=== PATIENT | male | born 1980 | race Hispanic/Latino ===

== ENCOUNTER 2024-07-14 13:09 | Emergency (ER) | payer BC ==
[2024-07-14] MEDS ORDERED: NA CHLORIDE 0.9% 2,000 ML ONE (13:50)
[2024-07-14 14:20] LABS: Absolute Eosinophils 0.1 K/uL (0-0.5); Absolute Lymphocytes (CBC) 1.2 K/uL (0.7-4.9); Absolute Monocytes 0.8 K/uL (0.1-1.3); Absolute Neutrophil 5.8 K/uL (1.8-8.0); Basophils % 0.5 % (0-1.3); Eosinophils % 1.1 % (0-4.4); Hematocrit 41.7 % (39.6-49.0); Hemoglobin 13.9 g/dL (13.6-17.9); Lymphocytes % 15.2 % (15.3-44.8); MCH 28.9 pg (27.0-35.0); MCHC 33.4 g/dL (32.0-36.0); MCV 86.6 fL (80-100); MPV 8.2 fL (7.6-11.3); Neutrophils % 73.2 % (41.7-73.7); Nucleated Red Blood Cells % 0.1 % (0-0); Platelets 203 thou/uL (152-406); RBC Red Blood Cell Count 4.82 M/uL (4.33-5.43); Red Cell Distribution Width 13.9 % (12.1-15.2)
[2024-07-14 14:37] LABS: PT Prothrombin Time 11.6 SECONDS (9.4-12.5); Protime INR 1.04
[2024-07-14 14:43] LABS: Specific Gravity 1.028 (1.005-1.030); Sqamous Epithelial <5 /HPF (None Seen); Urine Bacteria None Seen /HPF (<20); Urine Bilirubin NEGATIVE (Negative); Urine Blood Negative (Negative); Urine Clarity Extremely Turbid (Clear); Urine Color Light-Yellow (Yellow); Urine Crystals Unidentified Moderate /HPF (None Seen); Urine Culture Reflex Order NOT NEEDED; Urine Glucose NEGATIVE (Negative); Urine Ketones TRACE (Negative); Urine Microscopic Reflex YN ORDER UMIC; Urine Mucus 1+ /HPF (None Seen); Urine Nitrite NEGATIVE (Negative); Urine Protein 1+ (Negative); Urine Urobilinogen Normal (Normal); Urine WBC Clump Occasional /HPF (None Seen); Urine Yeast (Budding) Trace /HPF (None Seen); Urine pH 5.5 (5.0-7.0)
[2024-07-14 14:49] LABS: ALT/SGPT 25 U/L (16-61); AST/SGOT 23 U/L (15-37); Albumin 3.5 g/dL (3.4-5.0); Alkaline Phosphatase 52 U/L (45-117); Anion Gap 6.3 mEq/L (5.0-15.0); BUN Blood Urea Nitrogen 16 mg/dL (7-18); Bicarbonate 29 mEq/L (21-32); Bilirubin Total 0.2 mg/dL (0.2-1.0); Creatine Phosphokinase 282 U/L (39-308); Globulin 3.4 g/dL (2.3-3.5); Glomerular Filtration Rate 88 ml/min (=/>90); Glucose Level 125 mg/dL (74-106); Magnesium 2.2 mg/dL (1.6-2.4); NT PRO-BNP 15 pg/mL (<125); Potassium 4.3 mEq/L (3.5-5.1); Protein, Total 6.9 g/dL (6.4-8.2); Sodium Level 138 mEq/L (136-145); Troponin High Sensitivity 6.7 pg/mL (<58.9)
--- NOTE | 2024-07-14 14:50 | RAD REPORT ---
EXAM: Chest Single View HISTORY: COUGH COMPARISON: None. FINDINGS: LUNGS/PLEURA: Left lung base not well assessed due to underpenetration but grossly clear. The right l michelle is clear. MEDIASTINUM: The mediastinal silhouette is within normal limits. CARDIAC: Heart size at upper limits of normal. UPPER ABDOMEN: No significant abnormality. BONES: No acute fracture. LINES/TUBES/OTHER: N/A IMPRESSION: No definite evidence of acute cardiopulmonary disease. Left lung base partially obscured, probably du e to underpenetration. The heart size is at upper limits of normal.
[2024-07-14 14:51] LABS: Bilirubin Direct < 0.2 mg/dL (0-0.2)
--- NOTE | 2024-07-14 15:15 | RAD REPORT ---
EXAMINATION: CT HEAD WITHOUT CONTRAST CLINICAL INDICATION: Male, 44 years old.SYNCOPE TECHNIQUE: Axial CT images from the skull base to the vertex without intravenous contrast. Coronal an d sagittal reformatted images were created from the data set. One or more of the following dose reduction techniques were used: Automated exposure control, adjustment of the mA and/or kV according to patient size, and/or iterative reconstruction. Unless otherwise specified, incidental findings do not require dedicated imaging follow-up. [id number]. COMPARISON: No prior exam. FINDINGS: INTRACRANIAL: No acute intracranial hemorrhage. No hydrocephalus. No mass effect or midline shift. No significant white matter disease. VASCULATURE: No visualized abnormalities in the arteries or dural venous sinuses. SCALP/SKULL: No significant soft tissue or osseous abnormalities. SINUSES: The visualized paranasal sinuses and mastoid air cells are predominantly clear. IMPRESSION: No acute intracranial abnormality.
--- NOTE | 2024-07-14 15:33 | EDPHYS ---
Physician Documentation [facility] Name: Avery Aquino Age: 44 yrs Sex: Male : 1980 Arrival Date: 07/14/2024 Time: 13:09 Bed 19 Private MD: ED Physician Kiko Luther HPI: 07/14 13:33 This 44 yrs old Male presents to ER via Unassigned with complaints of [facility] WEAKNESS, HEAT EXPOSURE AND NEAR SYNCOPE. 13:33 DEHYDRATED , HEAT EXHAUSTION. Onset: The symptoms/episode began/occurred just prior to [facility] arrival, this morning. Severity of symptoms: At their worst the symptoms were moderate in the emergency department the symptoms have improved moderately. The patient has experienced similar episodes in the past, a few times. Historical: - Allergies: 13:45 No Known Allergies; kc6 - PMHx: 13:45 Hypertensive disorder; kc6 - PSHx: 13:45 None; kc6 - Immunization history:: Adult Immunizations up to date. - Infectious Disease History:: Denies. - Family history:: not pertinent. - Social history:: Smoking status: Patient denies any tobacco usage or history of. ROS: 13:34 Constitutional: Negative for fever, chills, and weight loss, Eyes: Negative for injury, chase pain, redness, and discharge, ENT: Negative for injury, pain, and discharge, Neck: Negative for injury, pain, and swelling, Cardiovascular: Negative for chest pain, palpitations, and edema, Respiratory: Negative for shortness of breath, cough, wheezing, and pleuritic chest pain, Abdomen/GI: Negative for abdominal pain, nausea, vomiting, diarrhea, and constipation, Back: Negative for injury and pain, : Negative for injury, bleeding, discharge, and swelling, MS/Extremity: Negative for injury and deformity, Skin: Negative for injury, rash, and discoloration, Psych: Negative for depression, anxiety, suicide ideation, homicidal ideation, and hallucinations, Allergy/Immunology: Negative for hives, rash, and allergies, Endocrine: Negative for neck swelling, polydipsia, polyuria, polyphagia, and marked weight changes, Hematologic/Lymphatic: Negative for swollen nodes, abnormal bleeding, and unusual bruising, 13:34 Neuro: Positive for dizziness, near syncope, weakness, Exam: 13:34 Constitutional: This is a well developed, well nourished patient who is awake, alert, chase and in no acute distress. Head/Face: Normocephalic, atraumatic. Eyes: Pupils equal round and reactive to light, extra-ocular motions intact. Lids and lashes normal. Conjunctiva and sclera are non-icteric and not injected. Cornea within normal limits. Periorbital areas with no swelling, redness, or edema. ENT: Nares patent. No nasal discharge, no septal abnormalities noted. Tympanic membranes are normal and external auditory canals are clear. Oropharynx with no redness, swelling, or masses, exudates, or evidence of obstruction, uvula midline. Mucous membranes moist. Neck: Trachea midline, no thyromegaly or masses palpated, and no cervical lymphadenopathy. Supple, full range of motion without nuchal rigidity, or vertebral point tenderness. No Meningismus. Chest/axilla: Normal chest wall appearance and motion. Nontender with no deformity. No lesions are appreciated. Cardiovascular: Regular rate and rhythm with a normal S1 and S2. No gallops, murmurs, or rubs. Normal PMI, no JVD. No pulse deficits. Respiratory: Lungs have equal breath sounds bilaterally, clear to auscultation and percussion. No rales, rhonchi or wheezes noted. No increased work of breathing, no retractions or nasal flaring. Abdomen/GI: Soft, non-tender, with normal bowel sounds. No distension or tympany. No guarding or rebound. No evidence of tenderness throughout. Back: No spinal tenderness. No costovertebral tenderness. Full range of motion. Male : Normal genitalia with no discharge or lesions. Skin: Warm, dry with normal turgor. Normal color with no rashes, no lesions, and no evidence of cellulitis. MS/ Extremity: Pulses equal, no cyanosis. Neurovascular intact. Full, normal range of motion., bilateral aka Neuro: Awake and alert, GCS 15, oriented to person, place, time, and situation. Cranial nerves II-XII grossly intact. Motor strength 5/5 in all extremities. Sensory grossly intact. Cerebellar exam normal. Normal gait. Psych: Awake, alert, with orientation to person, place and time. Behavior, mood, and affect are within normal limits. 13:34 ECG was reviewed by the Attending Physician. 13:57 ECG was reviewed by the Attending Physician. [facility] Vital Signs: 13:44 BP 119 / 78; Pulse 69; Resp 18 S; Temp 97.8(O); Pulse Ox 97% on R/A; Weight 106.59 kg kc6 (R); Height 6 ft. 2 in. (R); 15:52 BP 129 / 91; Pulse 70; Resp 17 S; Pulse Ox 100% on R/A; kc6 13:44 Body Mass Index 30.17 (106.59 kg, 187.96 cm) [facility] MDM: 13:13 Medical Screening Exam initiated chase 13:36 Differential Diagnosis altered mental status, sepsis, flu. Differential Diagnosis: [facility] cardiac arrhythmia, emotional response, pseudo seizure, vasovagal episode. Data reviewed: vital signs, nurses notes, lab test result(s), EKG, radiologic studies, CT scan, plain films. Consideration of Admission/Observation Escalation of care including admission/observation considered. I considered the following discharge prescriptions or medication management in the emergency department Medications were administered in the Emergency Department. See MAR. Independent interpretation of the following test(s) in the Emergency Department EKG: See my EKG interpretation above. Test considered but Not performed: CT: NO CT HEAD. Care significantly affected by the following chronic conditions: NONE. 07/14 13:14 Order name: Basic Metabolic Panel; Complete Time: 15:32 [facility] 07/14 13:14 Order name: CBC with Diff; Complete Time: 14:45 [facility] 07/14 13:14 Order name: LFT's; Complete Time: 15:32 [facility] 07/14 13:14 Order name: Magnesium; Complete Time: 15:32 [facility] 07/14 13:14 Order name: NT PRO-BNP; Complete Time: 15:32 [facility] 07/14 13:14 Order name: PT-INR; Complete Time: 14:45 [facility] 07/14 13:14 Order name: Troponin HS; Complete Time: 15:32 [facility] 07/14 13:14 Order name: Urinalysis w/ reflexes; Complete Time: 14:45 [facility] 07/14 13:14 Order name: CPK; Complete Time: 15:32 [facility] 07/14 13:14 Order name: XRAY Chest (1 view); Complete Time: 15:32 [facility] 07/14 14:45 Order name: CT Head Brain wo Cont; Complete Time: 15:32 [facility] 07/14 13:14 Order name: Cardiac monitoring; Complete Time: 13:58 [facility] 07/14 13:14 Order name: EKG - Nurse/Tech; Complete Time: 13:58 [facility] 07/14 13:14 Order name: IV Saline Lock; Complete Time: 13:46 [facility] 07/14 13:14 Order name: Labs collected and sent; Complete Time: 14:14 [facility] 07/14 13:14 Order name: O2 Per Protocol; Complete Time: 13:46 [facility] 07/14 13:14 Order name: O2 Sat Monitoring; Complete Time: 13:46 [facility] 07/14 13:14 Order name: PO challenge; Complete Time: 14:22 [facility] EC:57 Rate is 68 beats/min. Rhythm is regular. QRS [place] is Normal. MA interval is normal. QRS chase interval is normal. QT interval is normal. No Q waves. T waves are Normal. No ST changes noted. Clinical impression: Normal ECG and No evidence of ischemia. Interpreted by me. Reviewed by me. Administered Medications: 14:15 Drug: NS 0.9% IV 1000 ml IV at 1000 ml once; to be given as a bolus over 60 minutes kc6 Route: IV; Rate: 1000 ml; Site: right wrist; 15:52 Follow up: Response: No adverse reaction; IV Status: Completed infusion; IV Intake: kc6 1000ml 14:15 Drug: NS 0.9% IV 1000 ml IV at 1000 ml once; to be given as a bolus over 60 minutes kc6 Route: IV; Rate: 1000 ml; Site: right wrist; 15:52 Follow up: Response: No adverse reaction; IV Status: Completed infusion; IV Intake: kc6 1000ml Disposition Summary: 07/14/24 15:33 Discharge Ordered Notes: Location: Home chase Problem: new chase Symptoms: have improved chase Condition: Stable chase Diagnosis - Heat exhaustion, unspecified chase - Syncope Near chase - Dehydration chase Followup: chase - With: Private Physician - When: 2 - 3 days - Reason: Recheck today's complaints, Continuance of care, Re-evaluation by your physician Discharge Instructions: - Discharge Summary Sheet chase - Dehydration, Adult chase - Near-Syncope chase - Weakness chase - Weakness, [id number] chase - Dehydration, Adult, [id number] chase - Rehydration, Adult chase Forms: - Medication Reconciliation Form chase - Antibiotic Education chase - Prescription Opioid Use chase - Patient Portal Instructions chase - Leadership Thank You Letter chase - Work release form kc6 Signatures: Dispatcher [employer] EDMS Kiko Luther MD MD cha Campbell, Kaitlyn, RN RN kc6 Corrections: (The following items were deleted from the chart) 13:15 13:15 BASIC METABOLIC PANEL+C.LAB.BRZ ordered. EDMS EDMS 13:15 13:15 CBC+H.LAB.BRZ ordered. EDMS EDMS 13:15 13:15 HEPATIC FUNCTION+C.LAB.BRZ ordered. EDMS EDMS 13:15 13:15 MAGNESIUM+C.LAB.BRZ ordered. EDMS EDMS 13:15 13:15 PROBNP+C.LAB.BRZ ordered. EDMS EDMS 13:15 13:15 PROTIME (+INR)+COAG.LAB.BRZ ordered. EDMS EDMS 13:15 13:15 Troponin High Sensitivity+C.LAB.BRZ ordered. EDMS EDMS 13:15 13:15 Urinalysis+U.LAB.BRZ ordered. EDMS EDMS 13:15 13:15 CREATINE PHOSPHOKINASE+C.LAB.BRZ ordered. EDMS EDMS 13:15 13:15 Chest Single View+RAD.RAD.BRZ ordered. EDMS EDMS
--- NOTE | 2024-07-14 15:33 | ER ---
Nurse's Notes [facility] Name: Avery Aquino Age: 44 yrs Sex: Male : 1980 Arrival Date: 07/14/2024 Time: 13:09 Bed 19 Private MD: Diagnosis: Heat exhaustion, unspecified;Syncope Near;Dehydration Presentation: 07/14 13:44 Chief complaint: EMS states: they were toned out for "legs and arms tensing up". pt kc6 reports working outside and not having take his BP meds this AM. Coronavirus screen: At this time, the client does not indicate any symptoms associated with coronavirus-19. Ebola Screen: No symptoms or risks identified at this time. Initial Sepsis Screen: Does the patient meet any 2 criteria? No. Patient's initial sepsis screen is negative. Does the patient have a suspected source of infection? No. Patient's initial sepsis screen is negative. Risk Assessment: Do you want to hurt yourself or someone else? Patient reports no desire to harm self or others. Onset of symptoms was July 14, 2024. 13:44 Method Of Arrival: EMS: [facility] 6 13:44 Acuity: ALEXANDRE 3 kc6 13:45 Care prior to arrival: IV initiated. 18 GA, in the right wrist. kc6 Historical: - Allergies: 13:45 No Known Allergies; kc6 - PMHx: 13:45 Hypertensive disorder; kc6 - PSHx: 13:45 None; kc6 - Immunization history:: Adult Immunizations up to date. - Infectious Disease History:: Denies. - Family history:: not pertinent. - Social history:: Smoking status: Patient denies any tobacco usage or history of. Screenin:23 [facility] ED Fall Risk Assessment (Adult) History of falling in the last 3 months, kc6 including since admission No falls in past 3 months (0 pts) Confusion or Disorientation No (0 pts) Intoxicated or Sedated No (0 pts) Impaired Gait No (0 pts) Mobility Assist Device Used No (0 pt) Altered Elimination No (0 pt) Score/Fall Risk Level 0 - 2 = Low Risk Oriented to surroundings, Maintained a safe environment. Abuse screen: Denies threats or abuse. Denies injuries from another. Nutritional screening: No deficits noted. Tuberculosis screening: No symptoms or risk factors identified. Assessment: 14:23 General: Appears in no apparent distress. comfortable, well groomed, well developed, kc6 Behavior is calm, cooperative, appropriate for age. Pain: Complains of pain in right foot. Neuro: Level of Consciousness is awake, alert, obeys commands, Oriented to person, place, time, situation, Appropriate for age. Cardiovascular: Denies chest pain, shortness of breath, Capillary refill < 3 seconds Rhythm is regular. Respiratory: Airway is patent Trachea midline Respiratory effort is even, unlabored, Respiratory pattern is regular, symmetrical. GI: No signs and/or symptoms were reported involving the gastrointestinal system. : No signs and/or symptoms were reported regarding the genitourinary system. EENT: No signs and/or symptoms were reported regarding the EENT system. Derm: No signs and/or symptoms reported regarding the dermatologic system. Skin is intact, is healthy with good turgor, Skin is pink, warm \\T\\ dry. Musculoskeletal: No signs and/or symptoms reported regarding the musculoskeletal system. Circulation, motion, and sensation intact. Capillary refill < 3 seconds, Range of motion: intact in all extremities. 15:52 Reassessment: Patient appears in no apparent distress at this time. No changes from kc6 previously documented assessment. Patient and/or family updated on plan of care and expected duration. Pain level reassessed. Patient is alert, oriented x 3, equal unlabored respirations, skin warm/dry/pink. Patient states feeling better. Patient states symptoms have improved. Vital Signs: 13:44 BP 119 / 78; Pulse 69; Resp 18 S; Temp 97.8(O); Pulse Ox 97% on R/A; Weight 106.59 kg kc6 (R); Height 6 ft. 2 in. (R); 15:52 BP 129 / 91; Pulse 70; Resp 17 S; Pulse Ox 100% on R/A; kc6 13:44 Body Mass Index 30.17 (106.59 kg, 187.96 cm) [facility] ED Course: 13:13 Patient arrived in ED. eb 13:13 Kiko Luther MD is Attending Physician. chase 13:43 Kayla Aragon RN is Primary Nurse. kc6 13:45 Triage completed. kc6 13:45 Arm band placed on. kc6 14:22 Patient has correct armband on for positive identification. Placed in gown. Bed in low kc6 position. Call light in reach. Side rails up X2. Adult w/ patient. cardiac monitor on. Pulse ox on. NIBP on. Door closed. Noise minimized. Lights dimmed. Pillow given. Diet: Patient given water. Tolerated well. 14:22 Maintain EMS IV. Dressing intact. Good blood return noted. Site clean \\T\\ dry. Gauge \\T\\ aris 6 site: 18G RWRIST. 14:22 Patient maintains SpO2 saturation greater than 95% on room air. kc6 14:46 XRAY Chest (1 view) In Process Unspecified. EDMS 15:08 CT Head Brain wo Cont In Process Unspecified. EDMS 15:53 Provided Education on: s/s of dehydration. kc6 15:53 No provider procedures requiring assistance completed. IV discontinued, intact, kc6 bleeding controlled, No redness/swelling at site. Pressure dressing applied. Administered Medications: 14:15 Drug: NS 0.9% IV 1000 ml IV at 1000 ml once; to be given as a bolus over 60 minutes kc6 Route: IV; Rate: 1000 ml; Site: right wrist; 15:52 Follow up: Response: No adverse reaction; IV Status: Completed infusion; IV Intake: kc6 1000ml 14:15 Drug: NS 0.9% IV 1000 ml IV at 1000 ml once; to be given as a bolus over 60 minutes kc6 Route: IV; Rate: 1000 ml; Site: right wrist; 15:52 Follow up: Response: No adverse reaction; IV Status: Completed infusion; IV Intake: kc6 1000ml Medication: 15:53 VIS not applicable for this client. kc6 Intake: 15:52 IV: 1000ml; Total: 1000ml. kc6 15:52 IV: 1000ml; Total: 2000ml. kc6 Outcome: 15:33 Discharge ordered by . chase 15:53 Discharged to home ambulatory, with friend, yang 15:53 Condition: improved 15:53 Discharge instructions given to patient, friend, Instructed on discharge instructions, follow up and referral plans. Demonstrated understanding of instructions, follow-up care, 15:54 Patient left the ED. kc6 Signatures: Dispatcher [employer] Kiko Sin MD MD cha Botello, Elizabeth eb Campbell, Kaitlyn, RN RN kc6
[2024-07-14 16:31] VITALS: TEMP 97.8
[2024-07-14 16:33] VITALS: BP 129/91; O2SAT 100
--- NOTE | 2024-07-18 12:09 | EKG ---
Test Date: 2024-07-14 Test Time: 13:54:20 Octave Board Assembler: MAT MEASUREMENT RESULTS: Intervals: Rate: 68 MS: 156 QRSD: 88 QT: 398 QTc: 423 [place]: P: 55 MS: 156 QRS: 80 T: 34 INTERPRETIVE STATEMENTS: Normal sinus rhythm Normal ECG No previous ECG available for comparison Electronically Signed On 07-18-24 12:05:31 CONTROL BOARD OPERATOR by Teddy Holly
== END 2024-07-14 15:54 | disposition home or self-care (01) ==
LOC: ER 13:09
DX: T67.5XXA Heat exhaustion, unspecified, initial encounter (principal); E86.0 Dehydration; R55 Syncope and collapse; I10 Essential (primary) hypertension
CPT/HCPCS: 96361; 85025; 81001; 80048; 36415; 83735; 82550; 85610; 80076; 84484; 83880; 70450; 71045; 96360; 99284; J7030; 93005